=== PATIENT | female | born 1970 | race Two or more races ===

== ENCOUNTER → 2020-04-17 | Outpatient (CLI) | payer OTHER | END | disposition home or self-care (01) | LOC: LAB 13:37 | PROVIDERS: ATTEND Preventive Medicine Preventive Medicine/Occupational Environmental Medicine | DX: Z02.1 Encounter for pre-employment examination (principal) | CPT/HCPCS: 36415; 86706; 86735; 86762; 86765; 86787 ==

== ENCOUNTER 2024-10-25 09:26 | Emergency (ER) | payer OTHER ==
[~2024-10-25] VITALS: Ht 157.5 cm; Wt 66.9 kg
--- NOTE | 2024-10-25 10:39 | DVH ---
Procedure: XY NECK FOR SOFT TISSUE Exam Date: 10/25/2024 10:05 AM History: FB sensation Comparison Study: None Technique: Soft Tissue Neck AP and lateral views. Findings: No evidence of soft tissue swelling or radiopaque foreign body. No abnormal thickening of the epiglottis. There is advanced degenerative disc C4-C7. Impression: 1. No radiopaque foreign bodies are identified in the soft tissue neck. 2. Advanced degenerative disc disease C4-C7.
--- NOTE | 2024-10-25 10:48 | ED.PDOC ---
Foreign Body HPI Comments 54 year old female with a Hx of High Lipids presents to the ED for the c/c of a Foreign Body sensation in her Throat. Pt states that she was eating chicken wings for dinner last night, and after taking a bite, states she felt a sharp, stabbing pain in her throat. Pt states the foreign body feels stuck and swollen. No other associated Modifiers or symptoms at this time. Patient is still able to eat drink in her usual state of health. Denies any pain with flexion- extension and lateral movements of the neck. Denies any chest pain shortness of breath. Chief Complaint: Foreign Body Time Seen by MD: 10:43 History of Present Illness: Nurses Notes, Medications, Allergies Information Source: Patient Mode of Arrival: Ambulatory Timing: Hours Duration: Since onset, Hours Severity: Mild Ability to handle secretions: Normal Prehospital treatment: None Location: Throat Context: Ingestion, Accidental Foreign Body: Food Removal: Was not attempted Associated signs and symptoms: Pain Past Medical History PAST MEDICAL HISTORY: High Lipids Surgical History: Unknown Family History Family History: Unknown Social History Smoker: Non-Smoker Alcohol: Denies ETOH Use Drugs: Denies Drug Use Lives In: Home Constitutional: denies: chills, diaphoresis, fatigue, fever, malaise, sweats, weakness, others EENTM: denies: blurred vision, double vision, ear bleeding, ear discharge, ear drainage, ear pain, ear ringing, eye pain, eye redness, hearing loss, mouth pain, mouth swelling, nasal discharge, nose bleeding, nose congestion, nose pain, photophobia, tearing, throat pain, throat swelling, voice changes, others Respiratory: denies: cough, hemoptysis, orthopnea, SOB at rest, shortness of breath, SOB with excertion, stridor, wheezing, others Cardiovascular: denies: chest pain, dizzy spells, diaphoresis, Dyspnea on exertion, edema, irregular heart beat, left arm pain, lightheadedness, palpita tions, PND, syncope, others Gastrointestinal: denies: abdomen distended, abdominal pain, blood streaked jatinder wels, constipated, diarrhea, dysphagia, difficulty swallowing, hematemesis, melena, nausea, poor appetite, poor fluid intake, rectal bleeding, rectal pain, vomiting, others Genitourinary: denies: abnormal vagina bleeding, burning, dyspareunia, dysuria, flank pain, frequency, hematuria, incontinence, pain, , vagina discharge, urgency, others Neurological: denies: dizziness, fainting, headache, left sided numbness, left sided weakness, numbness, paresthesia, pre-existing deficit, right sided numbness, right sided weakness, seizure, speech problems, tingling, tremors, weakness, others Musculoskeletal: denies: back pain, gout, joint pain, joint swelling, muscle pain, muscle stiffness, neck pain, others Integumetry: denies: bruises, change in color, change in hair/nails, dryness, laceration, lesions, lumps, rash, wounds, others Allergic/Immunocompromised: denies: Difficulty Healing, Frequent Infections, Hives, Itching, others Hematologic/Lymphatic: denies: anemia, blood clots, easy bleeding, easy bruis ing, swollen glands, others Endocrine: denies: excessive hunger, excessive sweating, excessive thirst, exc essive urination, flushing, intolerance to cold, intolerance to heat, unexplained weight gain, unexplained weight loss, others Psychiatric: denies: anxiety, bipolar disorder, depression, hopeless, panic disorder, schizophrenia, sleepless, suicidal, others All Other Systems: Reviewed and Negative Physical Exam General Appearance: No Apparent Distress, Normal HEENT: Pharynx Normal, TMs Normal, Other (MMM, Uvual midline, no forign bodies) Neck: Full Range of Motion, Non-Tender, Normal, Normal Inspection Respiratory: Chest Non-Tender, Lungs Clear, No Accessory Muscle Use, No Respiratory Distress, Normal Breath Sounds Cardiovascular: No Edema, No JVD, No Murmur, No Gallop, Normal Peripheral Pulses, Regular Rate/Rhythm Breast Exam: Deferred Gastrointestinal: No Organomegaly, Non Tender, No Pulsatile Mass, Normal Bowel Sounds, Soft Genitalia: Deferred Pelvic: Deferred Rectal: Deferred Extremities: No calf tenderness, Normal capillary refill, Normal inspection, Normal range of motion, Non-tender, No pedal edema Musculoskeletal : Apperance: Normal Neurologic: Alert, zoology teacher II-XII nml as Tested, No Motor Deficits, Normal Affect, Normal Mood, No Sensory Deficits Cerebellar Function: Normal Reflexes: Normal Skin: Dry, Normal Color, Warm Lymphatic: No Adenopathy Was a procedure done? Was a procedure done?: No FB Differential Dx Differential Diagnosis: Abrasion, Airway Obstruction, Esophageal Obstruction, Foreign Body, Laceration, Perforation X-Ray, Labs, Meds, VS Vital Signs Date Time Temp Pulse Resp B/P (MAP) Pulse Ox O2 Delivery O2 Flow Rate FiO2 10/25/24 11:42 98.1 64 18 146/68 (94) 99 98.1 10/25/24 11:42 65 18 100 Room Air 10/25/24 09:41 98.0 70 17 155/88 (110) 99 98.0 Impression: 1. No radiopaque foreign bodies are identified in the soft tissue neck. 2. Advanced degenerative disc disease C4-C7. X-Ray, Labs, Meds, VS Comment 54 year old female with a Hx of High Lipids presents to the ED for the c/c of a Foreign Body sensation in her Throat. Impression: 1. No radiopaque foreign bodies are identified in the soft tissue neck. 2. Advanced degenerative disc disease C4-C7. The patient presented for foreign body sensation. X-rays ordered however x-rays were negative. No foreign body was identified. Patient has not difficulty breathing. No pain with swallowing. Able to eat drink in her usual state of health. Abdomen is nontender. Patient home with expectant management and observation. Recommend to check stool for foreign body. If foreign body not found in a few days, recommend return for repeat XR imaging. Discussed Emergency Department return precautions including pain, nausea/vomiting and fever. Patient is stable for discharge at this time. External notes reviewed. Test results and diagnostic imaging interpreted. All diagnostic findings, discharge care, education and instructions provided Follow-up with PCP in 2 to 3 days Patient verbalized understanding and agreed to treatment plan Vital signs stable, afebrile, no acute distress noted Patient ambulatory with strong steady gait Advised to return precautions for any new or worsening symptoms, return to ER immediately for re-evaluation Patient is aware that the purpose of this visit was for an acute medical emergency requiring emergent stabilization. Chronic conditions, including malignancies have not been ruled out. Patient is instructed to follow up with PCP as directed and discharge instructions for continued care and workup. If unable to arrange follow-up, patient is to return to the emergency department for reassessment. Patient (parent or legal guardian if applicable) was given verbal and written discharge instructions and acknowledges understanding. Time of 1ST Reevaluation: 11:13 Reevaluation 1ST: Unchanged Patient Education/Counseling: Diagnosis, Treatment Family Education/Counseling: No Family Present Departure 1 Departure Time of Disposition: 11:28 Impression: Primary Impression: Foreign body sensation in throat Disposition: 01 HOME / SELF CARE / HOMELESS Condition: Fair Critical Care Note Critical Care Time?: No Stability Stability form required: No Heart Score Heart Score: Heart Score Response (Comments) Value History N/A 0 EKG N/A 0 Age N/A 0 Risk Factors N/A 0 Troponin N/A 0 Total 0 I personally scribed for BEA MONET NP ([email or web address]) on 10/25/24 at 10:48. Electronically submitted by Orlin Whitfield ([email or web address]). I personally scribed for BEA MONET NP ([email or web address]) on 10/25/24 at 10:49. Electronically submitted by Orlin Whitfield ([email or web address]). BEA MONET NP Oct 25, 2024 10:48
[2024-10-25 11:42] VITALS: BP 146/68; PULSE 65; RESP 18; TEMP 98.1; O2SAT 100
== END 2024-10-25 11:45 | disposition home or self-care (01) ==
LOC: ER 09:26
DX: R09.A2 Foreign body sensation, throat (principal); E78.5 Hyperlipidemia, unspecified
CPT/HCPCS: 70360; 99283; J1100